=== PATIENT | male | born 1965 | race Caucasian/White ===

== ENCOUNTER 2018-09-11 17:48 | Emergency (ER) | payer SELFPAY ==
[~2018-09-11] VITALS: Ht 188 cm; Wt 86.4 kg
[2018-09-11 17:52] VITALS: BP 190/123; Ht 188 cm; Wt 86.4 kg
== END 2018-09-11 18:40 | disposition home or self-care (01) ==
LOC: D.ER 17:48
DX: F32.9 Major depressive disorder, single episode, unspecified (principal)

== ENCOUNTER 2018-12-04 18:42 | Emergency (ER) | payer MEDICAID ==
[~2018-12-04] VITALS: Ht 188 cm; Wt 90.9 kg
[2018-12-04 18:55] VITALS: Ht 188 cm; Wt 90.9 kg
--- NOTE | 2018-12-04 19:17 | NUR ---
ASSESSMENT AND FINDINGS REPORTED TO DR. MONK. DR. MONK STATED PT IS A LOW RISK. RESOURCES REVIEWED WITH PT AND HE VERBALIZED UNDERSTANDING. NO FURTHER ORDERS AT THIS TIME.
[2018-12-04 20:18] VITALS: BP 132/99
== END 2018-12-04 20:19 | disposition home or self-care (01) ==
LOC: D.ER 18:42
DX: F15.10 Other stimulant abuse, uncomplicated (principal)